=== PATIENT | female | born 2000 | race Caucasian/White ===

== ENCOUNTER 2018-03-25 01:57 | Emergency (ER) | payer OTHER ==
[2018-03-25 02:06] VITALS: BP 108/60; PULSE 115; RESP 18; TEMP 98.3
--- NOTE | 2018-03-25 02:07 | ED ---
General Adult HPI - General Chief complaint: ENT Stated complaint: Sore throat Time Seen by Provider: 03/25/18 02:07 Source: patient Mode of arrival: ambulatory Limitations: no limitations - History of Present Illness Initial comments: Patient is a 17-year-old female with no past medical history who presents to the ED today for a second opinion evaluation of her cough. Patient reports that she has had a minimally productive cough and a tickle in her throat for approximately a week. She denies any fevers, chills, nausea or vomiting. Patient reports that the cough is worse at night and has been keeping her awake which is made going to work at 7 AM very difficult for her. Today she got fed up with this and sought care at an outside hospital where she was noted to have a slight fever at 100.8 Fahrenheit, she received a chest x-ray and was advised that she may have an early pneumonia. She was prescribed albuterol as well as azithromycin. Patient reports that she left the ER and came immediately to our ER for a second opinion. Patient has no past medical history, he is only on control. She has no known history of blood clots or clotting disorder. She has not noticed any swelling in her legs. She has no known sick contacts. - Related Data Allergies Allergy/AdvReac Type Severity Reaction Status Date / Time No Known Allergies Allergy Verified 03/25/18 02:00 Review of Systems ROS Statement: Those systems with pertinent positive or pertinent negative responses have been documented in the HPI. ROS Other: All systems not noted in ROS Statement are negative. Constitutional: Reports: fever ENT: Reports: throat pain Respiratory: Reports: cough, wheezes. Denies: dyspnea, hemoptysis, stridor Cardiovascular: Denies: chest pain, palpitations Endocrine: Reports: fatigue Gastrointestinal: Denies: abdominal pain, nausea, vomiting Genitourinary: Denies: dysuria Musculoskeletal: Denies: back pain Skin: Denies: rash, lesions Psychiatric: Denies: anxiety, depression Hematological/Lymphatic: Denies: easy bleeding Past Medical History Past Medical History: No Reported History History of Any Multi-Drug Resistant Organisms: None Reported Past Surgical History: No Surgical Hx Reported Past Psychological History: No Psychological Hx Reported Smoking Status: Never smoker Past Alcohol Use History: None Reported Past Drug Use History: None Reported General Exam Limitations: no limitations General appearance: alert, in no apparent distress Head exam: Present: atraumatic, normocephalic Eye exam: Present: normal appearance, PERRL ENT exam: Present: normal exam, mucous membranes moist, TM's normal bilaterally , normal external ear exam, other (Tonsillar enlargement bilaterally but no injection or erythema, there was noted to be postnasal drip) Neck exam: Present: full ROM. Absent: lymphadenopathy Respiratory exam: Present: normal lung sounds bilaterally. Absent: respiratory distress, wheezes Cardiovascular Exam: Present: normal rhythm, tachycardia GI/Abdominal exam: Present: soft. Absent: distended Rectal exam: Present: deferred Extremities exam: Present: full ROM, normal capillary refill. Absent: pedal edema Back exam: Present: full ROM. Absent: CVA tenderness (R), CVA tenderness (L) Neurological exam: Present: alert, oriented X3, normal gait Psychiatric exam: Present: normal affect, normal mood Skin exam: Present: warm, dry, normal color Course Vital Signs 03/25/18 02:00 Temperature 98.3 F Pulse Rate 115 H Respiratory 18 Rate Blood Pressure 108/60 O2 Sat by Pulse 98 Oximetry Medical Decision Making - Medical Decision Making The patient was seen and evaluated, history was obtained from the patient and review of her outside medical records. Patient evaluated an outside emergency Department approximately 1 hour prior to arrival in our department. Chest x- ray there revealed a possible pneumonia patient was prescribed azithromycin and an albuterol inhaler. Patient was discharged On arrival here the patient is somewhat anxious, she is noted to be somewhat tachycardic but is now afebrile. As ago exam reveals patient with nasal congestion, postnasal drip, nonproductive cough. Review of her medical record does reveal possible pneumonia. I discussed with the patient ices suspect that she is also suffering from seasonal ALLERGIES and that she would benefit from an over-the- counter ALLERGY medication as well as Flonase. Patient expressed understanding of this. In concern that she has enlarged tonsils, I advised her that her tonsils do appear enlarged but do not appear to be infected however azithromycin would appropriately treat a strep infection so she should take as directed. Patient expressed understanding. Patient does not currently have a PCP in this area. I advised I will refer her to a primary care physician as well as an ENT so she can discuss a possible future tonsillectomy. Patient concerned that she did not get any sleep tonight and has worked in the morning, I advised her I will write her for one day off of work. I offered the patient further evaluation with IV abscess including but not limited to the complete blood count and d-dimer. At this point patient is confident that she is likely suffering from pneumonia and is agreeable to plan for treatment home. Patient will return to the ER for any acute worsening or development of new or concerning symptoms. Disposition Clinical Impression: Allergic rhinitis Disposition: HOME SELF-CARE Condition: Good Instructions: Sinusitis (ED), Allergies (ED) Is patient prescribed a controlled substance at d/c from ED?: No Referrals: None,Stated [Primary Care Provider] - 1-2 days Mariangel Vazquez MD [REFERRING] - 1-2 days Satnam Hanna MD [STAFF PHYSICIAN] - 1-2 days Time of Disposition: 02:18
== END 2018-03-25 02:40 | disposition home or self-care (01) ==
LOC: EC 01:57
DX: J30.9 Allergic rhinitis, unspecified (principal)
CPT/HCPCS: 99283

== ENCOUNTER 2024-08-28 10:15 | Inpatient (IN) | payer OTHER ==
[2024-08-28] MEDS ORDERED: CARBOPROST TROMETHAMINE 250 MCG/ML 1 ML AMP IM PRN (10:42)
[2024-08-28] MEDS ORDERED: METHYLERGONOVINE 0.2 MG/ML 1 ML AMP IM PRN (10:42)
[2024-08-28] MEDS ORDERED: OXYTOCIN 10 UNIT/ML 1 ML VIAL IM PRN (10:42)
[2024-08-28] MEDS ORDERED: TRANEXAMIC 1,000 MG/100ML-NACL 1,000 MG in EMPTY BAG 1 BAG IV PRN (10:42)
[2024-08-28] MEDS ORDERED: miSOPROStoL 200 MCG TAB PO PRN (10:42)
[2024-08-28 11:09] LABS: Glucose,Whole Blood 90 mg/dL (70-110)
[2024-08-28] MEDS: CITRIC ACID-SODIUM CITRATE 15 ML CUP PO ONE (11:44)
[2024-08-28] MEDS: LACTATED RINGERS 1,000 ML IV ONE (11:45)
[2024-08-28] MEDS: LACTATED RINGERS 1,000 ML IV SCH (12:04)
[2024-08-28 12:19] LABS: Basophils % (A) 0 %; Eosinophils # (A) 0.1 k/uL (0-0.7); Eosinophils % (A) 1 %; HCT 37.6 % (34.0-46.0); HGB 12.1 gm/dL (11.4-16.0); Lymphocytes # (A) 1.3 k/uL (1.0-4.8); Lymphocytes % (A) 17 %; MCH 24.8 pg (25.0-35.0); MCHC 32.2 g/dL (31.0-37.0); MCV 77.1 fL (80.0-100.0); Mean Platelet Volume 7.9; Microcytosis Slight; Monocytes # (A) 0.4 k/uL (0-1.0); Monocytes % (A) 6 %; Neutrophils # (A) 5.5 k/uL (1.3-7.7); Neutrophils % (A) 74 %; Platelet Count 312 k/uL (150-450); RBC 4.88 m/uL (3.80-5.40); RDW 15.2 % (11.5-15.5); WBC 7.4 k/uL (3.8-10.6)
[2024-08-28] MEDS: ceFAZolin 3 GM in SODIUM CHLORIDE 0.9% 100 ML IVPB ONE (12:27)
[2024-08-28] MEDS ORDERED: MORPHINE SULFATE (PF) 0.3 MG/0.3 ML SYR ONE (12:31)
[2024-08-28] MEDS ORDERED: PHENYLEPHRINE-0.9% NACL SYG 1,000 MCG/10 ML SYRINGE ONE (12:31)
[2024-08-28] MEDS ORDERED: ONDANSETRON 4 MG/2 ML VIAL ONE (12:31)
[2024-08-28] MEDS ORDERED: OXYTOCIN 30 UNITS/500 ML NS BAG IV ONE (12:31)
[2024-08-28] MEDS ORDERED: KETOROLAC 15 MG/ML 1 ML VIAL ONE (12:31)
[2024-08-28] MEDS ORDERED: ONDANSETRON 4 MG/2 ML VIAL IVP PRN (13:24)
[2024-08-28] MEDS ORDERED: diphenhydrAMINE 25 MG CAP PO PRN (13:24)
[2024-08-28] MEDS ORDERED: diphenhydrAMINE 50 MG CAP PO PRN (13:24)
[2024-08-28] MEDS ORDERED: diphenhydrAMINE 50 MG/ML 1 ML VIAL IVP PRN ×2 (13:24)
[2024-08-28] MEDS ORDERED: ZOLPIDEM 5 MG TAB PO PRN (13:24)
[2024-08-28] MEDS ORDERED: LANOLIN CREAM 1 GM TUBE TOPICAL PRN (13:24)
[2024-08-28] MEDS ORDERED: NALOXONE 0.4 MG/ML 1 ML VIAL IV PRN (13:24)
--- NOTE | 2024-08-28 13:28 | P.HPOB ---
History of Present Illness H&P Date: 08/28/24 Chief Complaint: primary low transverse 23 year old presents at 39 weeks for primary low transverse . US showed baby to be macrosomic and transverse. Review of Systems All systems: negative Constitutional: Denies chills, Denies fever Eyes: denies blurred vision, denies pain Ears, nose, mouth and throat: Denies headache, Denies sore throat Cardiovascular: Denies chest pain, Denies shortness of breath Respiratory: Denies cough Gastrointestinal: Denies abdominal pain, Denies diarrhea, Denies nausea, Denies vomiting Genitourinary: Denies dysuria, Denies hematuria Musculoskeletal: Denies myalgias Integumentary: Denies pruritus, Denies rash Neurological: Denies numbness, Denies weakness Psychiatric: Denies anxiety, Denies depression Endocrine: Denies fatigue, Denies weight change Past Medical History Past Medical History: Hypertension Additional Past Medical History / Comment(s): GDM History of Any Multi-Drug Resistant Organisms: None Reported Past Surgical History: No Surgical Hx Reported Past Anesthesia/Blood Transfusion Reactions: No Reported Reaction 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 No significant issues noted on an osteopathic structural exam other than those noted in the History and Physical/Consult. Vital Signs Temp Pulse Resp BP Pulse Ox 08/28/24 10:19 97.5 F L 98 18 130/71 98 Intake and Output 08/27/24 08/28/24 08/28/24 22:59 06:59 14:59 Other: Weight 189.148 kg Heart: Regular rate and rhythm Lungs: Clear to auscultation bilaterally Abdomen: Soft, nontender Extremities: Negative Homans sign Results Result Diagrams: 08/28/24 11:50 Abnormal Lab Results - Last 24 Hours (Table) 08/28/24 Range/Units 11:50 MCV 77.1 L (80.0-100.0) fL MCH 24.8 L (25.0-35.0) pg Assessment and Plan (1) Transverse lie of fetus Current Visit: Yes Status: Acute Code(s): O32.2XX0 - MATERNAL CARE FOR TRANSVERSE AND OBLIQUE LIE, UNSP SNOMED Code(s): 57920042 (2) Macrosomia Current Visit: Yes Status: Acute Code(s): P08.0 - EXCEPTIONALLY LARGE BABY SNOMED Code(s): 81258581 Plan: 1. primary low transverse
[2024-08-28] MEDS ORDERED: OXYTOCIN 30 UNITS/500 ML NS 30 UNIT in SALINE 1 500ML.BAG IV SCH (13:30)
--- NOTE | 2024-08-28 13:30 | P.OP ---
Date of Procedure: 08/28/24 Preoperative Diagnosis: 1. at 39 weeks 2. transverse lie 3. macrosomia Postoperative Diagnosis: same Procedure(s) Performed: primary low transverse Anesthesia: spinal Surgeon: Adelita Faye Fish Conservationist #1: Aparna Larkin Estimated Blood Loss (ml): 450 IV fluids (ml): 1,000 Urine output (ml): 100 Pathology: none sent Condition: stable Disposition: floor Description of Procedure: Patient was taken to the operating room where spinal anesthesia was found be adequate. She was prepped and draped in normal sterile fashion in dorsal supine position with a leftward tilt. Pfannenstiel skin incision was made the scalpel and carried through to the underlying layer of fascia with the scalpel. Fascia was incised in midline and carried bilaterally with the Cohen scissors. The superior aspect of the fascial incision was grasped with Revere clamps elevated and the underlying rectus muscles dissected off with the Cohen's. Attention was then turned to inferior aspect of same incision which in a similar fashion was grasped tented up and the underlying rectus muscles dissected off with the Cohen's. The rectus muscles were the midline and the peritoneum was identified tented up and entered sharply with the scalpel. The incision was extended superiorly and inferiorly with good visualization of the bladder. The bladder blade was inserted and the vesicouterine peritoneum was incised the Metzenbaums then carried bilaterally and bladder flap created digitally. A low transverse incision was then made on the uterus with the scalpel. This was carried bilaterally and digital manner. 's head delivered atraumatically, nose and mouth bulb suctioned, cord clamped and cut, handed off to waiting nurses. Apgars 8,9, weight pending. Placenta delivered manually, intact with three-vessel cord. The uterus is exteriorized and cleared of all clots and debris. The uterine incision was closed with 0 Vicryl in a running locked fashion. Second layer of the same sutures used in imbricating fashion to obtain excellent hemostasis. Both ovaries and tubes appeared normal. The uterus was placed back into the abdomen. The fascia was reapproximated using 0 Vicryl in a running fashion. The subcutaneous tissues closed with 3-0 Vicryl running fashion. The skin was closed liliya. Patient tolerated the procedure well, sponge and instrument counts were correct times 2 and she was taken to the recovery room in stable condition.
[2024-08-28] MEDS: KETOROLAC 15 MG/ML 1 ML VIAL IVP SCH ×2 (16:13→21:10)
[2024-08-28] MEDS: ACETAMINOPHEN TAB 500 MG TAB PO SCH (16:37)
[2024-08-28] MEDS: METOCLOPRAMIDE 5 MG/ML 2 ML VIAL IVP PRN (16:37)
[2024-08-28] MEDS: Rhogam IMMUNE GLOBULIN 1,500 UNIT/1 ML IM ONE (18:51)
[2024-08-28] MEDS ORDERED: KETOROLAC 15 MG/ML 1 ML VIAL IVP SCH (19:00)
[2024-08-28] MEDS ORDERED: ACETAMINOPHEN TAB 500 MG TAB PO SCH (20:00)
[2024-08-28] MEDS: SENNOSIDES-DOCUSATE SODIUM 1 EACH TAB PO SCH (21:16)
[2024-08-29 07:05] LABS: Basophils % (A) 0 %; Eosinophils % (A) 0 %; HCT 30.8 % (34.0-46.0); HGB 10.2 gm/dL (11.4-16.0); Lymphocytes # (A) 1.3 k/uL (1.0-4.8); Lymphocytes % (A) 17 %; MCH 25.5 pg (25.0-35.0); MCHC 33.1 g/dL (31.0-37.0); MCV 77.1 fL (80.0-100.0); Mean Platelet Volume 7.8; Microcytosis Slight; Monocytes # (A) 0.4 k/uL (0-1.0); Monocytes % (A) 5 %; Neutrophils # (A) 5.6 k/uL (1.3-7.7); Neutrophils % (A) 75 %; Platelet Count 279 k/uL (150-450); RBC 3.99 m/uL (3.80-5.40); RDW 15.3 % (11.5-15.5); WBC 7.5 k/uL (3.8-10.6)
--- NOTE | 2024-08-29 10:38 | P.PN ---
Progress Note - Text Progress Note Date: 08/29/24 (3900) Anesthesia Postop day 1 Subjective: Status Post section with Duramorph. Patient seen and examined. Doing well without complaint. VAS 4 out of 10. No nausea or vomiting. Mild pruritus tolerable.. Denies fever. Gross lower extremity strength intact. Without apparent anesthetic complications. Objective: Vital signs reviewed Heart: Regular Rate Lungs: Good chest excursion Abdomen: Appears nondistended Assessment: Status post section with Duramorph postop day 1 Plan: 1. Continue current care with your medical management. Anticipated end to the duration of the Duramorph around surgery time today. You may see increased pain needs around this time. 2. This note was dictated using [employer] software. Please be advised there is a potential for misspellings or errors in criminal justice faculty.
--- NOTE | 2024-08-29 11:45 | P.PNOBGPC ---
Subjective - Subjective Principal diagnosis: S/P 1*LTCS POD #1 Interval history: Patient Seen andExamined. Denies nausea, vomiting, chest pain, shortness of breath or calf pain.Is tolerating regular diet and passing flatus. Patient reports: Reports appetite normal, Reports voiding normally, Reports pain well controlled, Reports ambulating normally : doing well Objective - Vital Signs Latest vital signs: Vital Signs Temp Pulse Resp BP Pulse Ox 08/29/24 08:00 98.0 F 94 16 102/68 98 08/29/24 03:37 98.3 F 100 17 107/58 97 08/28/24 20:00 98.5 F 83 18 117/88 96 08/28/24 15:23 96.6 F L 80 18 115/58 99 08/28/24 15:08 81 18 120/52 99 08/28/24 14:53 83 18 124/60 99 08/28/24 14:38 81 18 112/57 99 08/28/24 14:23 88 18 107/53 99 08/28/24 14:08 85 90 H 109/58 98 08/28/24 13:53 86 18 120/53 99 08/28/24 13:38 89 18 118/59 98 08/28/24 13:23 97 F L 87 18 128/60 99 Intake and Output 08/28/24 08/29/24 08/29/24 22:59 06:59 14:59 Intake Total 480 Output Total 600 200 200 Balance -120 -200 -200 Intake: Oral 480 Output: Urine 600 200 200 Output, Quantitative 0 Blood Loss Other: Voiding Method Indwelling Catheter Indwelling Catheter # Voids 1 1 - Exam Lungs: bilateral: normal Chest: Normal S1, Normal S2 Extremities: Present: normal Abdomen: Present: normal appearance, soft. Absent: distention, tenderness Incision: Present: normal, dry, intact Uterus: Present: normal, firm - Labs Labs: Abnormal Lab Results - Last 24 Hours (Table) 08/28/24 08/29/24 Range/Units 11:50 06:49 Hgb 10.2 L (11.4-16.0) gm/dL Hct 30.8 L (34.0-46.0) % MCV 77.1 L 77.1 L (80.0-100.0) fL MCH 24.8 L (25.0-35.0) pg Assessment and Plan (1) Transverse lie of fetus Current Visit: Yes Status: Resolved Code(s): O32.2XX0 - MATERNAL CARE FOR TRANSVERSE AND OBLIQUE LIE, UNSP SNOMED Code(s): 27386982 (2) Macrosomia Current Visit: Yes Status: Resolved Code(s): P08.0 - EXCEPTIONALLY LARGE BABY SNOMED Code(s): 30523414 (3) Status post primary low transverse section Current Visit: Yes Status: Acute Code(s): Z98.891 - HISTORY OF UTERINE SCAR FROM PREVIOUS SURGERY SNOMED Code(s): 979243204 Plan: 1. Increase ambulation 2. By mouth pain medication
[2024-08-29] MEDS: MEASLES-MUMPS-RUBELLA VACC/PF 12,500 UNIT/0.5 ML VIAL SQ ONE (14:53)
[2024-08-29] MEDS: IBUPROFEN 800 MG TAB PO SCH (14:54)
[2024-08-29] MEDS: SIMETHICONE 80 MG CHEWABLE PO PRN (21:00)
[2024-08-30 07:52] VITALS: BP 129/75; PULSE 95; RESP 16; TEMP 98
--- NOTE | 2024-08-30 08:11 | P.DS ---
Providers Date of admission: 08/28/24 10:15 Expected date of discharge: 08/30/24 Attending physician: Adelita Faye Primary care physician: Stated None Hospital Course: Ms. Ferraro is a 23 year old now POD#2 s/p primary section for LGA fetus with uncontrolled GDM and transverse lie. The section was uncomplicated and her postoperative recovery has been unremarkable. The patient is doing well this morning and had no acute events overnight. She has no complaints this morning. She reports minimal lochia, passing flatus, voiding without difficulty, ambulating, and eating/drinking without nausea or vomiting. Infant doing well at bedside, s/p circumcision. She denies chest pain, shortness of breathing, fevers, or chills overnight. She denies pain or swelling in the legs. Postoperative restrictions are reviewed with the patient including pelvic rest for 6 weeks, no lifting heavier than 15 pounds for 6 weeks. The patient is encouraged to call the office if she experiences any heavy bleeding, foul- smelling discharge, breast complaints, or any if she has any other concerns. She will follow up in the office with Dr. Faye in 2 weeks for postoperative exam. She will go home with a 3-day supply of Oxycodone 5mg along with Motrin and Tylenol as needed for pain. All questions are answered. Assessment: 23 year old now POD#2 s/p primary section Patient Condition at Discharge: Good Plan - Discharge Summary New Discharge Prescriptions: New Ibuprofen [Motrin] 600 mg PO Q6HR PRN #30 tab PRN Reason: Mild Pain (Scale 1 To 3) Acetaminophen Tab [Tylenol] 650 mg PO Q6H PRN #30 tab PRN Reason: Mild Pain (Scale 1 To 3) oxyCODONE HCL [Roxicodone] 5 mg PO Q6HR PRN 3 Days #12 tab PRN Reason: Breakthrough Pain No Action Vit No.179/Iron/Folic [ Tablet] 1 each PO DAILY Discharge Medication List Vit No.179/Iron/Folic [ Tablet] 1 each PO DAILY 08/28/24 [History] Acetaminophen Tab [Tylenol] 650 mg PO Q6H PRN #30 tab 08/30/24 [Rx] Ibuprofen [Motrin] 600 mg PO Q6HR PRN #30 tab 08/30/24 [Rx] oxyCODONE HCL [Roxicodone] 5 mg PO Q6HR PRN 3 Days #12 tab 08/30/24 [Rx] Follow up Appointment(s)/Referral(s): Adelita Faye DO [Doctor of Osteopathic Medicine] - 09/09/24 1:15 pm (Post appointment 10-09-2024 at 10:15am) Activity/Diet/Wound Care/Special Instructions: Instructions 1. Do not begin any exercise program for 3 weeks. 2. Do not resume sexual relations for 6 weeks or longer if uncomfortable. 3. You may take tub baths or showers at any time. 4. You may use tampons if desired after 6 weeks. 5. Keep any areas repaired with stitches clean and dry. 6. If you are not nursing, wear a good fitting, supportive bra during the day and limit fluid intake for at least 1 week to prevent breast engorgement. 7. Call the office, , within the next week to make appointment for your 6 week checkup if it has not already been made. 8. Report any of the following occurrences to the doctor promptly: a. Heavy, excessive bleeding b. Chills, fever c. Burning or frequency of urination d. Pain or redness and breasts if nursing e. Increasing pain or swelling of vulva (stitches). In addition to the above instructions, the following additional should be followed: 1. No heavy lifting or straining (exercising) until after 6 week checkup. 2. Keep abdominal incision clean and dry: You may wear a dressing if more comfortable. 3. Make office appointment for 2 weeks after delivery date. Discharge Disposition: HOME SELF-CARE
== END 2024-08-30 11:15 | disposition home or self-care (01) | DRG 540 ==
LOC: MERGE 10:15 → 4FBP 10:15
PROVIDERS: ADMIT Obstetrics & Gynecology; ATTEND Obstetrics & Gynecology
PROC: 10D00Z1 Extraction of Products of Conception, Low, Open Approach (ICD-10-PCS; principal; 2024-08-28 12:00)
DX: O36.63X0 Maternal care for excessive fetal growth, third trimester, not applicable or unspecified (principal); O24.429 Gestational diabetes mellitus in childbirth, unspecified control; O32.2XX0 Maternal care for transverse and oblique lie, not applicable or unspecified; Z3A.39 39 weeks gestation of pregnancy; Z37.0 Single live birth; Z87.891 Personal history of nicotine dependence
CPT/HCPCS: 85025; 85461; 86850; 86870; 86880; 86900; 86901; 90707

== ENCOUNTER 2024-10-10 02:14 | Emergency (ER) | payer OTHER ==
[2024-10-10 02:22] VITALS: RESP 18; TEMP 98.3
[2024-10-10] MEDS: SODIUM CHLORIDE 0.9% 500 ML 500 ML IV STA (03:17)
[2024-10-10] MEDS: ONDANSETRON 4 MG/2 ML VIAL IVP STA (03:19)
[2024-10-10 03:52] LABS: Basophils % (A) 0 %; Eosinophils % (A) 1 %; HCT 35.2 % (34.0-46.0); HGB 11.5 gm/dL (11.4-16.0); Lymphocytes # (A) 0.7 k/uL (1.0-4.8); Lymphocytes % (A) 10 %; MCH 24.6 pg (25.0-35.0); MCHC 32.8 g/dL (31.0-37.0); MCV 74.9 fL (80.0-100.0); Mean Platelet Volume 7.9; Microcytosis Slight; Monocytes # (A) 0.3 k/uL (0-1.0); Monocytes % (A) 4 %; Neutrophils % (A) 84 %; Platelet Count 281 k/uL (150-450); RBC 4.69 m/uL (3.80-5.40); RDW 14.8 % (11.5-15.5); WBC 7.1 k/uL (3.8-10.6)
[2024-10-10 04:17] LABS: African American GFR (CKD) >90 (>60 ml/min/1.73 sqM); Anion Gap 12 mmol/L; Blood Urea Nitrogen 8 mg/dL (7-17); C Reactive Protein 3.4 mg/dL (<1.0); Calcium 8.6 mg/dL (8.4-10.2); Carbon Dioxide 21 mmol/L (22-30); Chloride 102 mmol/L (98-107); Glucose 97 mg/dL (74-99); Non-African American GFR(CKD) >90 (>60 ml/min/1.73 sqM); Potassium 3.6 mmol/L (3.5-5.1); Sodium 135 mmol/L (137-145)
--- NOTE | 2024-10-10 06:07 | ED ---
Abdominal Pain HPI - General Chief Complaint: Abdominal Pain Stated Complaint: Abdominal pain Time Seen by Provider: 10/10/24 02:21 Source: patient, EMS Mode of arrival: EMS Limitations: no limitations - History of Present Illness Initial Comments: This patient is a 23-year-old woman who arrives here as a transfer from [facility]. The patient had gone there this evening with complaint of having vomiting, diarrhea, and epigastric abdominal pain. The patient had workup there including labs and CT scan. She was transferred here as she was found to have fluid collection in the abdominal wall, inferior to the umbilicus. The patient did have section on August 28. The patient states that she has not had any issues related to the incision site. There is no erythema or warmth. No pain there. No drainage. Patient not having any systemic symptoms, no fever or chills. She states that she was having symptoms similar to previous episode of gastroenteritis. MD Complaint: abdominal pain -: hour(s) Location: epigastric Radiation: none Severity: moderate Quality: cramping Consistency: intermittent, now resolved Improves With: nothing Worsens With: nothing Associated Symptoms: nausea, vomiting, diarrhea - Related Data Home Medications Medication Instructions Recorded Confirmed Vit No.179/Iron/Folic 1 each PO DAILY 08/28/24 08/28/24 [ Tablet] Previous Rx's Medication Instructions Recorded Acetaminophen Tab [Tylenol] 650 mg PO Q6H PRN #30 tab 08/30/24 Ibuprofen [Motrin] 600 mg PO Q6HR PRN #30 tab 08/30/24 oxyCODONE HCL [Roxicodone] 5 mg PO Q6HR PRN 3 Days #12 tab 08/30/24 Ondansetron Odt [Zofran ODT] 4 mg PO Q8HR PRN #10 tab 10/10/24 Allergies Allergy/AdvReac Type Severity Reaction Status Date / Time No Known Allergies Allergy Verified 10/10/24 02:22 Review of Systems ROS Statement: Those systems with pertinent positive or pertinent negative responses have been documented in the HPI. ROS Other: All systems not noted in ROS Statement are negative. Constitutional: Denies: fever, chills Respiratory: Denies: cough, dyspnea Cardiovascular: Denies: chest pain, palpitations, edema Gastrointestinal: Reports: abdominal pain, nausea, vomiting, diarrhea. Denies: hematemesis, melena, hematochezia Genitourinary: Denies: dysuria, hematuria Musculoskeletal: Denies: back pain Skin: Denies: rash Neurological: Denies: headache, weakness, numbness Past Medical History Past Medical History: Hypertension Additional Past Medical History / Comment(s): Borderline Personality Disorder History of Any Multi-Drug Resistant Organisms: None Reported Past Surgical History: Section Additional Past Surgical History / Comment(s): CSection 08/28/24 Past Anesthesia/Blood Transfusion Reactions: No Reported Reaction Past Psychological History: ADD/ADHD, Anxiety, Depression, PTSD Smoking Status: Former smoker, Vaper Past Alcohol Use History: Occasional Past Drug Use History: None Reported - Past Family History Mother History Unknown: Yes General Exam Limitations: no limitations General appearance: alert, in no apparent distress Head exam: Present: atraumatic, normocephalic Eye exam: Present: normal appearance. Absent: scleral icterus, conjunctival injection ENT exam: Present: normal oropharynx Neck exam: Present: normal inspection Respiratory exam: Present: normal lung sounds bilaterally. Absent: respiratory distress, wheezes, rales, rhonchi, stridor, accessory muscle use Cardiovascular Exam: Present: regular rate, normal rhythm, normal heart sounds. Absent: systolic murmur, diastolic murmur, rubs, gallop GI/Abdominal exam: Present: soft. Absent: distended, tenderness, guarding, rebound, rigid, mass Extremities exam: Present: normal inspection, normal capillary refill. Absent: pedal edema, calf tenderness Back exam: Present: normal inspection. Absent: CVA tenderness (R), CVA tenderness (L) Neurological exam: Present: alert Skin exam: Present: warm, dry, intact, normal color. Absent: rash Course Vital Signs 10/10/24 10/10/24 02:16 06:16 Temperature 98.3 F Pulse Rate 105 H 96 Respiratory 18 18 Rate Blood Pressure 124/69 115/78 O2 Sat by Pulse 98 98 Oximetry Medical Decision Making - Medical Decision Making I did review the patient's case with Dr. Molina who is covering the obstetrics unit tonight. Results appear consistent with healing surgical incision and not at this time suggestive of infection. The patient's gastroenteritis symptoms have improved. She did tolerate oral intake here. At this point she is feeling well and stable to go home. Discussed appropriate return parameters and follow- up. Was pt. sent in by a medical professional or institution (AILYN Beckford, CORONARY CLINICAL SPECIALIST, urgent care, hospital, or [place] health care facility...) When possible be specific @ -[No] Did you speak to anyone other than the patient for history (EMS, parent, family, police, friend...)? What history was obtained from this source @ -[No] Did you review nursing and triage notes (agree or disagree)? Why? @ -[I reviewed and agree with nursing and triage notes] Were old charts reviewed (outside hosp., previous admission, EMS record, old EKG, old radiological studies, urgent care reports/EKG's, [place] health care facility records)? Report findings @ -[The transfer charts were reviewed] Differential Diagnosis (chest pain, altered mental status, abdominal pain women, abdominal pain men, vaginal bleeding, weakness, fever, dyspnea, syncope, headache, dizziness, GI bleed, back pain, seizure, CVA, palpatations, mental health, musculoskeletal)? @ -[Differential Abdominal Pain Women: Appendicitis, Cholecystitis, diverticulosis, ischemic bowel, pancreatitis, hepatitis, UTI, gastroenteritis, AAA, incarcerated hernia, bowel obstruction, constipation, inflammatory bowel, hepatitis, peptic ulcer disease, splenic infarction, perforated viscus, vulvitis, ovarian torsion, PID, kidney stone, placenta abruption, this is not meant to be an all-inclusive list EKG interpreted by me (3pts min.). @ -[As above] X-rays interpreted by me (1pt min.). @ -[None done] CT interpreted by me (1pt min.). @ -[None done] U/S interpreted by me (1pt. min.). @ -[None done] What testing was considered but not performed or refused? (CT, X-rays, U/S, labs)? Why? @ -[None] What meds were considered but not given or refused? Why? @ -[None] Did you discuss the management of the patient with other professionals (professionals i.e. AILYN Beckford, CORONARY CLINICAL SPECIALIST, lab, RT, psych nurse, social services manager, transfer car operator, teacher, senior commercial loan officer, director of casework department)? Give summary @ -[No] Was smoking cessation discussed for >3mins.? @ -[No] Was critical care preformed (if so, how long)? @ -[No] Were there social determinants of health that impacted care today? How? (Homelessness, low income, unemployed, alcoholism, drug addiction, transportation, low edu. Level, literacy, decrease access to med. care, prison, rehab)? @ -[No] Was there de-escalation of care discussed even if they declined (Discuss DNR or withdrawal of care, Hospice)? DNR status @ -[No] What co-morbidities impacted this encounter? (DM, HTN, Smoking, COPD, CAD, Cancer, CVA, ARF, Chemo, Hep., AIDS, mental health diagnosis, sleep apnea, morbid obesity)? @ -[Recent section Was patient admitted / discharged? Hospital course, mention meds given and ro tat[place], prescriptions, significant lab abnormalities, going to OR and other pertinent info. @ -[See above Undiagnosed new problem with uncertain prognosis? @ -[No] Drug Therapy requiring intensive monitoring for toxicity (Heparin, Nitro, Insulin, Cardizem)? @ -[No] Were any procedures done? @ -[No] Diagnosis/symptom? @ -[Postsurgical seroma/hematoma Acute, or Chronic, or Acute on Chronic? @ -[Subacute Uncomplicated (without systemic symptoms) or Complicated (systemic symptoms)? @ -[Uncomplicated Side effects of treatment? @ -[No] Exacerbation, Progression, or Severe Exacerbation? @ -[No] Poses a threat to life or bodily function? How? (Chest pain, [place], [place], pneumonia, PE, COPD, DKA, ARF, appy, cholecystitis, CVA, Diverticulitis, Homicidal, Suicidal, threat to staff... and all critical care pts) @ -[No] All treatments are based on ideal body weight as in ED triage - Lab Data Result diagrams: 10/10/24 03:22 10/10/24 03:22 Lab Results 10/10/24 10/10/24 Range/Units 03:22 03:22 WBC 7.1 (3.8-10.6) k/uL RBC 4.69 (3.80-5.40) m/uL Hgb 11.5 (11.4-16.0) gm/dL Hct 35.2 (34.0-46.0) % MCV 74.9 L (80.0-100.0) fL MCH 24.6 L (25.0-35.0) pg MCHC 32.8 (31.0-37.0) g/dL RDW 14.8 (11.5-15.5) % Plt Count 281 (150-450) k/uL MPV 7.9 Neutrophils % 84 % Lymphocytes % 10 % Monocytes % 4 % Eosinophils % 1 % Basophils % 0 % Neutrophils # 6.0 (1.3-7.7) k/uL Lymphocytes # 0.7 L (1.0-4.8) k/uL Monocytes # 0.3 (0-1.0) k/uL Eosinophils # 0.0 (0-0.7) k/uL Basophils # 0.0 (0-0.2) k/uL Microcytosis Slight Sodium 135 L (137-145) mmol/L Potassium 3.6 (3.5-5.1) mmol/L Chloride 102 (98-107) mmol/L Carbon Dioxide 21 L (22-30) mmol/L Anion Gap 12 mmol/L BUN 8 (7-17) mg/dL Creatinine 0.77 (0.52-1.04) mg/dL Est GFR (CKD-EPI)AfAm >90 (>60 ml/min/1.73 sqM) Est GFR (CKD-EPI)NonAf >90 (>60 ml/min/1.73 sqM) Glucose 97 (74-99) mg/dL Calcium 8.6 (8.4-10.2) mg/dL C-Reactive Protein 3.4 H (<1.0) mg/dL Disposition Clinical Impression: Gastroenteritis, Seroma Disposition: HOME SELF-CARE Condition: Good Instructions (If sedation given, give patient instructions): Gastroenteritis (ED) Prescriptions: Ondansetron Odt [Zofran ODT] 4 mg PO Q8HR PRN #10 tab PRN Reason: Nausea Is patient prescribed a controlled substance at d/c from ED?: No Referrals: None,Stated [Primary Care Provider] - 1-2 days
[2024-10-10 06:17] VITALS: BP 115/78; PULSE 96
== END 2024-10-10 06:19 | disposition home or self-care (01) ==
LOC: EC 02:14
DX: K52.9 Noninfective gastroenteritis and colitis, unspecified (principal); L76.34 Postprocedural seroma of skin and subcutaneous tissue following other procedure; F17.290 Nicotine dependence, other tobacco product, uncomplicated
CPT/HCPCS: 36415; 80048; 85025; 86140; 99284; 96374; J2405